=== PATIENT | male | born 1970 | race Caucasian/White ===

== ENCOUNTER 2019-06-01 19:51 | Emergency (ER) | payer BC ==
[2019-06-01 20:06] VITALS: BP 122/79; PULSE 78; RESP 18; TEMP 98.5
--- NOTE | 2019-06-01 21:46 | US ---
EXAMINATION TYPE: US venous doppler duplex LE LT DATE OF EXAM: 06/01/2019 9:28 PM COMPARISON: NONE CLINICAL HISTORY: Pain. Pain x 1 day. No hx of DVT. Pt not on blood thinners. SIDE PERFORMED: Left TECHNIQUE: The lower extremity deep venous system is examined utilizing real time linear array sonog felipe with graded compression, doppler sonography and color-flow sonography. VESSELS IMAGED: External Iliac Vein (EIV) Common Femoral Vein Deep Femoral Vein Greater Saphenous Vein * Femoral Vein Popliteal Vein Small Saphenous Vein * Proximal Calf Veins (* superficial vessels) FINDINGS: No direct or indirect evidence for DVT. IMPRESSION: Negative for DVT, left lower extremity.
--- NOTE | 2019-06-01 21:51 | ED ---
Extremity Problem HPI - General Chief complaint: Extremity Problem,Nontraumatic Stated complaint: Possible blood clot in leg Time Seen by Provider: 06/01/19 20:07 Source: patient Mode of arrival: ambulatory Limitations: no limitations - History of Present Illness Initial comments: 49yo male presenting for left posterior knee pain. Patient states from midcalf to midthigh he has had been having pain. He states it feels like a strain. He was told by someone that he could possibly have a blood clot and that is why presents to emergency department today. Patient denies any leg swelling. Denies cancer he denies any recent travel on airplanes immobilization or recent surgeries. Patient denies history of DVT or pulmonary embolism. Patient denies any numbness tingling or loss sensation of the extremity direct trauma injury or falls. Remaining review of systems negative upon arrival patient appears well signs of acute distress. Laboratory no problem weightbearing - Related Data Allergies Allergy/AdvReac Type Severity Reaction Status Date / Time No Known Allergies Allergy Verified 06/01/19 20:06 Review of Systems ROS Statement: Those systems with pertinent positive or pertinent negative responses have been documented in the HPI. ROS Other: All systems not noted in ROS Statement are negative. Past Medical History Past Medical History: Hyperlipidemia, Hypertension History of Any Multi-Drug Resistant Organisms: None Reported Past Surgical History: Hernia Repair Past Psychological History: No Psychological Hx Reported Smoking Status: Never smoker Past Alcohol Use History: Occasional Past Drug Use History: None Reported General Exam - General Exam Comments Initial Comments: General: The patient is awake and alert, in no distress, and does not appear acutely ill. Eye: Pupils are equal, round and reactive to light, extra-ocular movements are intact. No nystagmus. There is normal conjunctiva bilaterally. No signs of icterus. Ears, nose, mouth and throat: There are moist mucous membranes and no oral lesions. Neck: The neck is supple, there is no tenderness or JVD. Cardiovascular: There is a regular rate and rhythm. No murmur, rub or gallop is appreciated. Respiratory: Lungs are clear to auscultation, respirations are non-labored, breath sounds are equal. No wheezes, stridor, rales, or rhonchi. Gastrointestinal: Soft, non-distended, non-tender abdomen without masses or organomegaly noted. There is no rebound or guarding present. Musculoskeletal: Normal ROM, no tenderness. Strength 5/5. Sensation intact. Pulses equal bilaterally 2+. Neurological: A&O x 3. CN II-XII intact, There are no obvious motor or sensory deficits. Coordination appears grossly intact. Speech is normal. Skin: Skin is warm and dry and no rashes or lesions are noted. (-) Homans. No LE edema. No masses posterior leg b/l. Mild tenderness to palpation of the posterior left leg, from mid calf to above knee. Psychiatric: Cooperative, appropriate mood & affect, normal judgment. Limitations: no limitations Course Vital Signs 06/01/19 20:04 Temperature 98.5 F Pulse Rate 78 Respiratory 18 Rate Blood Pressure 122/79 O2 Sat by Pulse 98 Oximetry Medical Decision Making - Medical Decision Making 9 with concern for blood clot. No risk factors for blood clot. No findings on physical examination consistent aside from posterior leg pain. Ultrasound negat jacek for DVT. Patient states he does work out and feels this may be a strain. No direct trauma injury or falls. Patient able to weight-bear. Neurovascular intact. At this time I do feel patient is stable for discharge and outpatient primary care follow-up and rice instruction. Patient is agreeable to care plan discharged appearing well, pleased with plan. Disposition Clinical Impression: Right leg pain Disposition: HOME SELF-CARE Condition: Good Instructions (If sedation given, give patient instructions): Leg Pain (ED) Additional Instructions: Please use medication as discussed. Please follow-up with family doctor in the next 2 days. Please return to emergency room if the symptoms increase or worsen or for any other concerns. Is patient prescribed a controlled substance at d/c from ED?: No Referrals: Elia Jacob MD [Primary Care Provider] - 1-2 days Time of Disposition: 21:51
== END 2019-06-01 22:38 | disposition home or self-care (01) ==
LOC: EC 19:51
DX: M79.605 Pain in left leg (principal); M25.562 Pain in left knee; Z98.890 Other specified postprocedural states
CPT/HCPCS: 99283

== ENCOUNTER → 2025-02-25 | Outpatient (CLI) | payer BC ==
--- NOTE | 2025-02-25 11:02 | CT ---
EXAMINATION TYPE: CT heart w calcium score DATE OF EXAM: 02/25/2025 COMPARISON: None CLINICAL INDICATION: Male, 55 years old with history of E78.5 HYPERLIPIDEMIA, UNSPECIFIED; PHH, Famil y Hx of heart disease. TECHNIQUE: Prospective Gating was used. Slice thickness: 3mm. Density threshold (HU): 130, Pixel threshold: 3, Algorithm: discrete. CT DLP: 105.[address] CTDI: 7.11 mGy Automated exposure control for dose reduction was used. FINDINGS: CT CALCIUM SCORING Coronary calcium is a marker for plaque (fatty deposits) in a blood vessel or atherosclerosis (harden ing of the arteries). The presence and amount of calcium detected in a coronary artery by the CT sca n, indicates the presence and amount of atherosclerotic plaque. These calcium deposits appear years before the development of heart disease symptoms such as chest pain and shortness of breath. A calcium score is computed for each of the coronary arteries based upon the volume and density of th e calcium deposits. This can be referred to as your calcified plaque burden. It does not correspond directly to the percentage of narrowing in the artery but does correlate with the severity of the un derlying coronary atherosclerosis. RESULTS Region: LM Calcium Score ([place]): 197.11 Volume (mm3): 155.7 Mass (g): 51.9 Region: RCA Calcium Score ([place]): 196.19 Volume (mm3): 155.7 Mass (g): 51.9 Region: LAD Calcium Score ([place]): 0 Volume (mm3): 0 Mass (g): 0 Region: CX Calcium Score ([place]): 94.41 Volume (mm3): 80.61 Mass (g): 26.87 Region: PDA Calcium Score ([place]): 0 Volume (mm3): 0 Mass (g): 0 Total: Calcium Score ([place]): 487.71 Volume (mm3): 392.01 Mass (g): 130.67 TOTAL CALCIUM SCORE: 487.71 IMPRESSION: Calcium Score: 401 or higher Implication: Extensive atherosclerotic plaque Risk of Coronary Artery Disease: High likelihood of at least one significant coronary narrowing. CALCIUM SCORE IMPLICATION RISK OF C ORONARY ARTERY DISEASE 0 No identifiable plaque Very low, generally less than 5% 1-10 Minimal identifiable plaque Very unlikely, less than 10% 11-100 Definite, at least mild atherosclerotic plaque Mild or m inimal coronary narrowings likely 101-400 Definite, at least moderate atherosclerotic plaque Mild coronary ar eddie disease highly likely, significant narrowing possible 401 or Higher Extensive atherosclerotic plaque High lik elihood of at least one significant coronary narrowing [facility], , 02/25/2025 11:00 AM
== END | disposition home or self-care (01) ==
LOC: RADCTMAIN 09:12
PROVIDERS: ATTEND Family Medicine
DX: E78.5 Hyperlipidemia, unspecified (principal); I25.10 Atherosclerotic heart disease of native coronary artery without angina pectoris; I70.90 Unspecified atherosclerosis
CPT/HCPCS: 75571